=== PATIENT | female | born 1975 | race Caucasian/White ===

== ENCOUNTER 2020-11-20 13:13 | Emergency (ER) | payer SELFPAY ==
--- NOTE | 2020-11-20 13:30 | ED.GENADULT ---
HPI - General Adult General Stated complaint: Fall Time Seen by Provider: 11/20/20 13:30 Source: patient History of Present Illness HPI narrative: While patient was being triaged on the telephone, I was asked to speak to her. Patient fell at [employer] just prior to arrival, striking her head and does not remember the fall. She takes aspirin and is complaining of headache, knee and wrist pain. Told patient that we would be happy to evaluate her and would facilitate transfer to ER for evaluation of her head injury/headache. States instead, she would like to have her drive her to a local ER directly instead of coming in for [facility] visit first.
== END 2020-11-20 13:30 | disposition left against medical advice (07) ==
LOC: EXPBETH 13:21
PROVIDERS: Emergency Provider Nurse Practitioner
DX: Z53.21 Procedure and treatment not carried out due to patient leaving prior to being seen by health care provider (principal)
CPT/HCPCS: 99199

== ENCOUNTER 2020-11-20 17:22 | Emergency (ER) | payer OTHER, SELFPAY ==
--- NOTE | ~2020-11-20 | XR_ITS ---
EXAMINATION: XR wrist RT min 3V DATE: 11/20/2020 19:01 INDICATION: Ulnar-sided right wrist pain and swelling post fall TECHNIQUE: Posteroanterior, ulnar deviation, oblique, and lateral views of the right wrist were obtai ximena. COMPARISON: none FINDINGS: Alignment is normal. No fracture. Joint spaces are normal. Soft tissues are unremarkable. IMPRESSION: 1. Negative right wrist radiographs. Reviewed, dictated and finalized at location A. OPERATOR
[2020-11-20 17:53] VITALS: PULSE 95; RESP 16; TEMP 36.4; O2SAT 97
[2020-11-20 18:44] VITALS: BP 163/94; PULSE 93; RESP 18; O2SAT 100
--- NOTE | 2020-11-20 19:44 | ED.UPPEXIN ---
HPI - Extremity Injury (Upper) General Chief Complaint: Extremity Injury, Upper Stated Complaint: fell, rt wrist pain Time Seen by Provider: 11/20/20 18:58 Source: patient and family Mode of arrival: ambulatory Limitations: no limitations History of Present Illness HPI narrative: 45-year-old with a history of hypertension here with complaints of right wrist pain. Patient she states that she tripped and fell on outstretched hand. She denies any head or neck injuries. MD complaint: injury to: right Onset (ago): hour(s) (3) Other Extremity Injury: Right: wrist Other injuries: none Handedness: right Place: home Severity: moderate Relieving factors: none Exacerbating factors: none Review of Systems Review of Systems: All systems reviewed & are unremarkable except as noted in HPI and below Constitutional: Constitutional: Reports no additional constitutional complaints ENT: Reports system reviewed and no additional complaints, except as documented Cardiovascular: Cardiovascular: Reports no additional cardiovascular complaints Respiratory: Respiratory: Reports no additional respiratory complaints Gastrointestinal: Gastrointestinal: Reports no additional gastrointestinal complaints Exam Narrative: Exam Narrative: GENERAL: Well-appearing, well-nourished, and in no acute distress. HEAD: Normocephalic, atraumatic. EYES: PERRLA and EOMI. NECK: Supple. CHEST: Clear to auscultation. No respiratory distress. HEART: Regular rate and rhythm. No murmur heard. Normal peripheral pulses.. EXTREMITIES: Normal range of motion. No edema. Right wrist no deformity SKIN: Warm, dry, no rash. NEURO: No focal deficits. Alert and oriented x3. PSYCH: Normal mood and affect. Course Vital Signs Vital signs: Vital Signs Temperature 36.4 C 11/20/20 17:53 Pulse Rate 95 11/20/20 17:53 Respiratory Rate 16 11/20/20 17:53 Pulse Oximetry 97 11/20/20 17:53 Temperature 36.4 C 11/20/20 17:53 Pulse Rate 93 11/20/20 18:44 Respiratory Rate 18 11/20/20 18:44 Blood Pressure 163/94 H 11/20/20 18:44 Pulse Oximetry 100 11/20/20 18:44 MDM - Extremity Injury (Upper) Differential Diagnosis Differential diagnosis: Likely sprain and strain of wrist and fracture of wrist Imaging Data Radiologist's impression: ITS Impressions Wrist X-Ray 11/20/20 19:10 IMPRESSION: 1. Negative right wrist radiographs. Discharge Plan Discharge Clinical Impression: Sprain and strain of wrist Patient Disposition: Home, Self-Care Condition: Stable Instructions: Antibiotic Form, Wrist Sprain (ED) Additional Instructions: Jose wrap , take tylenol or motrin for pain Follow-up/Referrals: PHYSICIAN,CLIENT ADMINISTRATOR [Primary Care Provider] - Jc Olivarez MD [Physician] - Time of Disposition: 19:51
[2020-11-20 19:58] VITALS: BP 158/100; PULSE 88; RESP 16; TEMP 36.8; O2SAT 100
== END 2020-11-20 19:59 | disposition home or self-care (01) ==
PROVIDERS: Emergency Provider Family Medicine
DX: S63.501A Unspecified sprain of right wrist, initial encounter (principal); S66.911A Strain of unspecified muscle, fascia and tendon at wrist and hand level, right hand, initial encounter; W01.0XXA Fall on same level from slipping, tripping and stumbling without subsequent striking against object, initial encounter
CPT/HCPCS: 73110; 99283